=== PATIENT | female | born 1975 | race Caucasian/White ===

== ENCOUNTER 2017-01-27 12:35 | Emergency (ER) | payer MEDICAID, OTHER ==
[~2017-01-27] VITALS: Ht 162.6 cm; Wt 110.5 kg
[~2017-01-27 12:35] MED LIST: DENIES; IBUP-1542 PO; PRED20TA PO
[2017-01-27 12:42] VITALS: Ht 162.6 cm; Wt 110.5 kg
[2017-01-27] MEDS ORDERED: SOD CHLORIDE 0.9% 1,000 ML IV STA (13:57)
[2017-01-27 14:47] LABS: ADD SCAN DIFF NO
[2017-01-27 14:50] LABS: BASOPHIL # 0.1 10^3/ul (0.0-0.1); BASOPHILS % 0.5 % (0.0-2.0); EOSINOPHILS # 0.1 10^3/ul (0.0-0.5); EOSINOPHILS % 0.7 % (0.0-7.0); HEMATOCRIT 48.1 % (37.0-47.0); HEMOGLOBIN 15.6 g/dl (12.0-16.0); LYMPHOCYTES # 2.9 10^3/ul (0.8-2.9); LYMPHOCYTES % 25.7 % (15.0-51.0); MEAN CORPUSCULAR HEMOGLOBIN 28.5 pg (29.0-33.0); MEAN CORPUSCULAR HGB CONC 32.4 g/dl (32.0-37.0); MEAN CORPUSCULAR VOLUME 87.9 fl (82.0-101.0); MEAN PLATELET VOLUME 12.7 fl (7.4-10.4); MONOCYTES % 8.9 % (0.0-11.0); NEUTROPHIL # 7.3 10^3/ul (1.6-7.5); NEUTROPHILS % 63.9 % (39.0-77.0); PLATELET COUNT 295 10^3/UL (140-415); RED BLOOD COUNT 5.47 10^6/ul (4.20-5.40); RED CELL DISTRIBUTION WIDTH 15.4 % (11.5-14.5); WHITE BLOOD COUNT 11.4 10^3/ul (4.8-10.8)
[2017-01-27 15:18] LABS: ALBUMIN 4.5 g/dl (3.3-4.9)
[2017-01-27 15:19] LABS: POTASSIUM 3.6 mmol/L (3.5-5.1)
--- NOTE | 2017-01-27 15:19 | RADRPT ---
PROCEDURE: CT scan of the abdomen and pelvis with IV contrast. CLINICAL INDICATION: Abdominal Pain TECHNIQUE: Thin section axial, coronal and sagittal images were performed through the abdomen and pelvis without contrast and then following the injection of 100 cc of Isovue 370. Radiation Dose: CTDI: 23.7 and DLP: 1452.4 One or more of the following dose reduction techniques were used: - Automated exposure control. - Adjustment of the mA and/or kV according to patient size. Use of iterative reconstruction technique. COMPARISON: No. FINDINGS: Soft tissues: The soft tissues are generous. Lungs and pleural spaces: Normal. There is a eventration in the right diaphragm. Heart: Normal. The liver, common bile duct and gallbladder: Normal. Gastrointestinal: There is no hiatal hernia. The stomach is unremarkable but incompletely distended . The small bowel loops have a normal caliber. There is diastasis rectus. There is a midline umbi lical hernia measuring up to 2.1 cm sagittal. It contains only fat. The neck of the hernia measure s 1.4 cm. There are diverticula in the splenic flexure without evidence of diverticulitis. There ar e diverticula in the sigmoid colon. The vermiform appendix is normal. Pancreas: Normal. Kidneys, bladder and adrenal glands : Normal. Spleen: Normal. Lymph nodes: Normal. Reproductive system and pelvis : The uterus is retroverted and enlarged. It has a lobulated contour. A subserosal leiomyoma is suspected along the left fundus of the uterus which would be best evalua shraddha with ultrasound. The uterus measures about 9 cm sagittal by 7.1 cm transverse by 6 cm AP. No ab normal adnexal mass is identified. The left ovary is unremarkable. The right ovary is not well vis ualized. Bony elements: There are moderate degenerative changes in the articular facets at L4-5 and L5-S1. T here are mild degenerative changes in the articular facets at L2-3 and L3-4. No bone metastasis or a cute bony fracture is identified. There are degenerative osteophytes in the lower thoracic spine. Vasculature: Normal. IMPRESSION: 1. Retroverted uterus which is mildly enlarged and has a lobulated contour with a suspected subsero jomar leiomyoma noted on the ventral left side of fundus. This would be better defined with a pelvic s onogram and clinically indicated. No abnormal adnexal mass is identified. 2. Diastasis rectus with midline umbilical hernia containing fat. The umbilical hernia measures up to 2.1 cm sagittal with the neck of the hernia measuring up to 1.4 cm transverse. 3. Eventration of the right diaphragm. 4. Osteoarthritis of the lower lumbar spine. 5. Diverticulosis of the splenic flexure and sigmoid colon. No evidence of diverticulitis. Normal vermiform appendix. RPTAT:AAJJ Jeremie Dodge Physician Date Time Electronically viewed and signed by Jeremie Dodge Physician on 01/27/2017 15:18 ROLA/
[2017-01-27 15:21] LABS: ALBUMIN/GLOBULIN RATIO 1.04; BILIRUBIN,INDIRECT 0.3 mg/dl (0-1.1); BILIRUBIN,TOTAL 0.3 mg/dl (0.2-1.3); CREATININE 0.67 mg/dl (0.44-1.00); TOTAL PROTEIN 8.8 g/dl (6.1-8.1)
[2017-01-27 15:22] LABS: CALCIUM 9.4 mg/dl (8.4-10.2)
[2017-01-27 15:28] LABS: ADD UMIC YES; URINE BILIRUBIN (Dip) NEGATIVE (NEGATIVE); URINE BLOOD (Dip) 3+ (NEGATIVE); URINE COLOR LT. YELLOW (YELLOW); URINE GLUCOSE (Dip) NEGATIVE (NEGATIVE); URINE KETONES (Dip) NEGATIVE (NEGATIVE); URINE LEUKOCYTE ESTERASE (Dip) TRACE (NEGATIVE); URINE NITRITE (Dip) NEGATIVE (NEGATIVE); URINE TOTAL PROTEIN (Dip) NEGATIVE (NEGATIVE); URINE UROBILINOGEN (Dip) 0.2 E.U./dL (0.1-1.0)
[2017-01-27 16:00] LABS: BACTERIA,URINE FEW; SQUAMOUS EPITHELIAL CELL,UR FEW
[2017-01-27] MEDS ORDERED: ONDA4TAB14 PO (16:34)
[2017-01-27] MEDS ORDERED: NAPR-260 PO (16:34)
--- NOTE | 2017-01-27 16:58 | ERD ---
ER Documentation Chief Complaint Date/Time DATE: 01/27/17 TIME: 16:54 Chief Complaint body aches, feels weak, dizzy, nausea , tearful at intake HPI Patient is a 41-year-old female with a past medical history of anxiety and recent tooth surgery presents to the ED with multiple complaints. Patient states that she has body aches, weakness, dizziness, nausea on and off for the last week. She states that she finished a course of clindamycin 5 days ago and has had mild watery diarrhea. She denies vomiting. She states that she did have an appetite today and tolerated food. She has had a mild appetite in the last couple of days. Denies headache. Denies passing out or losing consciousness. No other complaints. ROS All systems reviewed and are negative except as per history of present illness. Medications Home Meds Active Scripts Ondansetron (Ondansetron Odt) 4 Mg Tab.rapdis, 4 MG PO Q6H Y for NAUSEA AND/OR VOMITING, #10 TAB Prov:BEATRIZ CORBIN PA-C 01/27/17 Naproxen* (Naprosyn*) 500 Mg Tablet, 500 MG PO BID Y for PAIN AND/OR INFLAMMATION, #30 TAB Prov:BEATRIZ CORBIN PA-C 01/27/17 Prednisone* (Prednisone*) 20 Mg Tab, 40 MG PO DAILY for 4 Days, TAB Prov:ALLAN FARFAN 06/24/15 Ibuprofen* (Motrin*) 600 Mg Tab, 600 MG PO Q6, #30 TAB Prov:ALLAN FARFAN 06/24/15 Reported Medications [Denies] No Conflict Check 10/17/12 Allergies Allergies: Coded Allergies: No Known Allergy (Unverified , 08/08/14) PMhx/Soc History of Surgery: Yes (C-SECTIONS X2, dental surgery) Anesthesia Reaction: No Hx Neurological Disorder: No Hx Respiratory Disorders: Yes (ASTHMA) Hx Cardiac Disorders: No Hx Psychiatric Problems: No Hx Miscellaneous Medical Probl: Yes (Anxiety) Hx Alcohol Use: No Hx Substance Use: No Hx Tobacco Use: No FmHx Family History: No coronary disease, No diabetes, No other Physical Exam Vitals Vital Signs Date Time Temp Pulse Resp B/P Pulse Ox O2 Delivery O2 Flow Rate FiO2 01/27/17 17:08 18 98 Room Air 01/27/17 12:42 98.1 90 18 152/91 99 Physical Exam GENERAL: Well-developed, well-nourished female. Appears in no acute distress. HEAD: Normocephalic, atraumatic. EYES: Pupils are equally reactive bilaterally. EOMs grossly intact. No conjunctival erythema. ENT: Moist mucous membranes. No uvula deviation. No kissing tonsils. No exudates. NECK: Supple. No lymphadenopathy or thyromegaly. No meningismus. negative kernig. negative brudinski. LUNG: Clear to auscultation bilaterally. No rhonchi, wheezing, rales or coarse breath sounds. HEART: Regular rate and rhythm. No murmurs, rubs or gallops. ABDOMEN: No scars, ecchymosis or rashes noted. Soft,. Positive bowel sounds in all four quadrants. No rebound tenderness, no guarding. (-) McBurneys point tenderness. No CVA tenderness. Generalized tenderness in all quadrants. More in the left lower quadrant BACK: No midline tenderness. Extremities: Equal pulses bilaterally. No peripheral clubbing, cyanosis or edema. No unilateral leg swelling. NEUROLOGIC: Alert and oriented. Moving all four extremities. 5/5 strength in all extremities. Normal speech. Steady gait. Moist mucous membranes. SKIN: Normal color. Warm and dry. No rashes or lesions. Capillary refill < 2 seconds Result Diagram: 01/27/17 1420 01/27/17 1420 Results 24 hrs Laboratory Tests Test 01/27/17 14:20 01/27/17 14:30 White Blood Count 11.410^3/ul Red Blood Count 5.4710^6/ul Hemoglobin 15.6g/dl Hematocrit 48.1% Mean Corpuscular Volume 87.9fl Mean Corpuscular Hemoglobin 28.5pg Mean Corpuscular Hemoglobin Concent 32.4g/dl Red Cell Distribution Width 15.4% Platelet Count 34139^3/UL Mean Platelet Volume 12.7fl Neutrophils % 63.9% Lymphocytes % 25.7% Monocytes % 8.9% Eosinophils % 0.7% Basophils % 0.5% Nucleated Red Blood Cells % 0.0/100WBC Neutrophils # 7.310^3/ul Lymphocytes # 2.910^3/ul Monocytes # 1.010^3/ul Eosinophils # 0.110^3/ul Basophils # 0.110^3/ul Nucleated Red Blood Cells # 0.010^3/ul Sodium Level 145mmol/L Potassium Level 3.6mmol/L Chloride Level 112mmol/L Carbon Dioxide Level 25mmol/L Anion Gap 12 Blood Urea Nitrogen 6mg/dl Creatinine 0.67mg/dl Glucose Level 90mg/dl Calcium Level 9.4mg/dl Total Bilirubin 0.3mg/dl Direct Bilirubin 0.00mg/dl Indirect Bilirubin 0.3mg/dl Aspartate Amino Transf (AST/SGOT) 25IU/L Alanine Aminotransferase (ALT/SGPT) 43IU/L Alkaline Phosphatase 80IU/L Total Protein 8.8g/dl Albumin 4.5g/dl Globulin 4.30g/dl Albumin/Globulin Ratio 1.04 Lipase 52U/L Urine Color LT. YELLOW Urine Clarity SLIGHTLY CLOUDY Urine pH 6.0 Urine Specific [place] <=1.005 Urine Ketones NEGATIVE Urine Nitrite NEGATIVE Urine Bilirubin NEGATIVE Urine Urobilinogen 0.2 E.U./dL Urine Leukocyte Esterase TRACE Urine Microscopic RBC 2-5/HPF Urine Microscopic WBC 5-10/HPF Urine Squamous Epithelial Cells FEW Urine Bacteria FEW Urine Hemoglobin 3+ Urine Glucose NEGATIVE% Urine Total Protein NEGATIVE Current Medications Medications (Trade) Dose Ordered Sig/Jude Route PRN Reason Start Time Stop Time Status Last Admin Dose Admin Sodium Chloride (NS) 1,000 ml @ 1,000 mls/hr Q1H STAT IV 01/27/17 13:57 01/27/17 14:56 DC 01/27/17 14:36 Procedures/MDM ER COURSE: I kept the patient and/or family informed of laboratory and diagnostic imaging results throughout the emergency room course. EKG, MONITORS, & DIAGNOSTIC IMAGING: [place] [id number] Radiology Main Line: [phone] DIAGNOSTIC IMAGING REPORT Patient: CONOR ROSS : 1975 Age: 41 Sex: F MR #: [id number] DOS: 01/27/17 1357 Ordering MD: BEATRIZ CORBIN PA-C Location: [facility] Room/Bed: PROCEDURE: CT scan of the abdomen and pelvis with IV contrast. CLINICAL INDICATION: Abdominal Pain TECHNIQUE: Thin section axial, coronal and sagittal images were performed through the abdomen and pelvis without contrast and then following the injection of 100 cc of Isovue 370. Radiation Dose: CTDI: 23.7 and DLP: 1452.4 One or more of the following dose reduction techniques were used: - Automated exposure control. - Adjustment of the mA and/or kV according to patient size. Use of iterative reconstruction technique. COMPARISON: No. FINDINGS: Soft tissues: The soft tissues are generous. Lungs and pleural spaces: Normal. There is a eventration in the right diaphragm. Heart: Normal. The liver, common bile duct and gallbladder: Normal. Gastrointestinal: There is no hiatal hernia. The stomach is unremarkable but incompletely distended. The small bowel loops have a normal caliber. There is diastasis rectus. There is a midline umbilical hernia measuring up to 2.1 cm sagittal. It contains only fat. The neck of the hernia measures 1.4 cm. There are diverticula in the splenic flexure without evidence of diverticulitis. There are diverticula in the sigmoid colon. The vermiform appendix is normal. Pancreas: Normal. Kidneys, bladder and adrenal glands : Normal. Spleen: Normal. Lymph nodes: Normal. Reproductive system and pelvis : The uterus is retroverted and enlarged. It has a lobulated contour. A subserosal leiomyoma is suspected along the left fundus of the uterus which would be best evaluated with ultrasound. The uterus measures about 9 cm sagittal by 7.1 cm transverse by 6 cm AP. No abnormal adnexal mass is identified. The left ovary is unremarkable. The right ovary is not well visualized. Bony elements: There are moderate degenerative changes in the articular facets at L4-5 and L5-S1. There are mild degenerative changes in the articular facets at L2-3 and L3-4. No bone metastasis or acute bony fracture is identified. There are degenerative osteophytes in the lower thoracic spine. Vasculature: Normal. IMPRESSION: 1. Retroverted uterus which is mildly enlarged and has a lobulated contour with a suspected subserosal leiomyoma noted on the ventral left side of fundus. This would be better defined with a pelvic sonogram and clinically indicated. No abnormal adnexal mass is identified. 2. Diastasis rectus with midline umbilical hernia containing fat. The umbilical hernia measures up to 2.1 cm sagittal with the neck of the hernia measuring up to 1.4 cm transverse. 3. Eventration of the right diaphragm. 4. Osteoarthritis of the lower lumbar spine. 5. Diverticulosis of the splenic flexure and sigmoid colon. No evidence of diverticulitis. Normal vermiform appendix. RPTAT:AAJJ Physician [place] Date Time Electronically viewed and signed by Jeremie Dodge Physician on 01/27/2017 15:18 JM/ CC: BEATRIZ CORBIN PA-C PROCEDURES: IV fluids. Zofran. Tolerated well with no adverse reaction. Seen improvement in symptoms. LAB INTERPRETATION: CBC showed no evidence of systemic infection or severe anemia. CMP showed no evidence of electrolyte abnormalities, severe acidosis, alkalosis, renal failure , or liver disease. Lipase showed no evidence of acute pancreatitis. UA showed trace leukocytes, no nitrites or hematuria. Urine test was negative. MEDICAL DECISION MAKING: This is a 41-year-old female who presents with abdominal pain, nausea, body aches, dizziness.. Vital signs were reviewed. Patient is afebrile. Patient is not hypoxic. Patient is not toxic or ill-appearing. Patient has abdominal pain of unknown etiology. Patient does have diverticulosis with no diverticulitis. Low suspicion for ACS, AAA, perforated ulcer, bowel obstruction , cholecystitis, choledocholithiasis, cholangitis, pancreatitis, hepatic abscess , appendicitis, diverticulitis, gastroenteritis, hepatitis, peptic ulcer disease , HELLP syndrome. After administration of medication and fluids, patient seen improvement in symptoms and felt much better and was ready to be discharged home. Low suspicion for ACS, PE, AAA, dissection, DVT Low suspicion for intracranial hemorrhage, meningitis, intracranial mass, concussion, temporal arteritis, stroke, elevated intracranial pressure, seizure. At this point patient does not need to be admitted and can be treated outpatiently. DISCHARGE: At this time, patient is stable for discharge and outpatient management with no new complaints during the ER course. Patient was sent home with Bobby, Lucarosyn and copy of all laboratory and imaging studies to follow-up with primary care provider. Patient will be discharged home with instructions to recheck for new or worsening symptoms such as fever, nausea, weakness, LOC and to follow up with primary care in the next 1-2 days. Patient was advised to return to the ER for any new or worsening symptoms. Plan was discussed and patient and/or family understands and agrees. Home instructions were given. Departure Diagnosis: Primary Impression: Abdominal pain Abdominal location: generalized Qualified Code: R10.84 - Generalized abdominal pain Condition: Stable Patient Instructions: Abdominal Pain Additional Instructions: Call your primary care doctor TOMORROW for an appointment during the next 1-2 days.See the doctor sooner or return here if your condition worsens before your appointment time. BEATRIZ CORBIN PA-C January 27, 2017 16:58
[2017-01-27 17:08] VITALS: RESP 18
== END 2017-01-27 17:09 | disposition home or self-care (01) ==
LOC: FTE 12:35
DX: R10.84 Generalized abdominal pain (principal); J45.909 Unspecified asthma, uncomplicated; R11.0 Nausea
CPT/HCPCS: 36415; 74176; 80053; 81001; 83690; 85025; J7030; Z7502